=== PATIENT | female | born 1960 | race Caucasian/White ===

== ENCOUNTER 2017-11-03 13:20 | Emergency (ER) | payer OTHER ==
[2017-11-03] MEDS ORDERED: IBUPROFEN 400 MG TABLET. PO ONE (13:45)
[2017-11-03] MEDS ORDERED: ACET325T9 PO (13:51)
[2017-11-03] MEDS ORDERED: IBUP200T44 PO (13:51)
[2017-11-03] MEDS ORDERED: DIAZ5TAB PO (13:51)
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
[2017-11-03 14:30] VITALS: BP 135/84
== END 2017-11-03 14:30 | disposition home or self-care (01) ==
LOC: ER 13:20
DX: S13.4XXA Sprain of ligaments of cervical spine, initial encounter (principal); V89.2XXA Person injured in unspecified motor-vehicle accident, traffic, initial encounter; Y93.89 Activity, other specified; Y99.8 Other external cause status; Y92.481 Parking lot as the place of occurrence of the external cause
CPT/HCPCS: 72125; 99284-25